=== PATIENT | male | born 1995 | race Caucasian/White ===

== ENCOUNTER 2022-05-12 22:23 | Emergency (ER) | payer BC ==
[~2022-05-12] VITALS: Ht 170.2 cm; Wt 79.0 kg
[2022-05-13 00:02] LABS: CLARITY URINE CLOUDY (CLEAR); COLOR URINE YELLOW (YELLOW); KETONES URINE TRACE (NEGATIVE); LEUKOCYTE ESTERASE URINE 2+ (NEGATIVE); NITRITE URINE NEGATIVE (NEGATIVE); OCCULT BLOOD URINE 1+ (NEGATIVE); PROTEIN URINE 1+ (NEGATIVE); SPECIFIC GRAVITY URINE 1.031 (1.005-1.030)
[2022-05-13] MEDS ORDERED: CEFTRIAXONE SODIUM 1 G/VIAL IM ONE (00:15)
[2022-05-13] MEDS ORDERED: CEFP200T13 MT (00:15)
[2022-05-13] MEDS ORDERED: LIDOCAINE HCL 1% 20ML VIAL (Pyxis) INJ INFIL ONE (00:15)
[2022-05-13 00:40] VITALS: BP 122/88
== END 2022-05-13 00:41 | disposition home or self-care (01) ==
LOC: ER 22:23
DX: N39.0 Urinary tract infection, site not specified (principal)
CPT/HCPCS: 81003; 87077; 87086; 87186; 96372; 99283; J0696; J3490